=== PATIENT | female | born 1955 | race Hispanic/Latino ===

== ENCOUNTER 2018-03-24 15:26 | Outpatient (CLI) | payer BC | END 2018-03-24 15:27 | disposition home or self-care (01) | LOC: BICMRI 15:26 | PROVIDERS: ATTEND Specialist | DX: M54.14 Radiculopathy, thoracic region (principal) | CPT/HCPCS: 72070; 72146 ==

== ENCOUNTER 2018-04-08 09:42 | Outpatient (CLI) | payer BC | END 2018-04-08 09:43 | disposition home or self-care (01) | LOC: BICMAMMO 09:42 | PROVIDERS: ATTEND Physician Assistant | DX: Z12.31 Encounter for screening mammogram for malignant neoplasm of breast (principal); Z80.3 Family history of malignant neoplasm of breast | CPT/HCPCS: 77063; 77067 ==

== ENCOUNTER 2018-06-04 17:44 | Inpatient (IN) | payer BC ==
[~2018-06-04 17:44] MED LIST: Glycopyrrolate 0.2 MG/ML 5 ML SYRINGE ONE; Lidocaine 1% PF 5 ML VIAL ONE; PROPOFOL 200 MG/20 ML VIAL ONE; Succinylcholine Chloride 20 MG/ML 10 ml SYRINGE FS ONE
[2018-06-04] MEDS ORDERED: Gentamicin Sulfate 300 MG in Sodium Chloride 0.9% 100 ML IVPB ONE (18:00)
[2018-06-04] MEDS ORDERED: Fentanyl 100 MCG/2 ML VIAL ONE ×4 (18:06→21:17)
[2018-06-04 18:08] LABS: #Basophils 0.1 thou/uL (0.0-0.2); #Eosinphils 0.2 thou/uL (0.0-0.7); #Neutrophils 5.8 thou/uL (1.40-6.50); %Basophils 0.8 % (0.0-1.0); %Eosinophils 1.8 % (0.0-10.0); %Lymphocytes 29.6 % (21.0-51.0); %Neutrophils 57.8 % (42.0-75.0); Hemoglobin 15.8 g/dL (12.0-16.0); Mean Corpuscular HGB CONC 34.9 g/dL (32.0-36.0); Mean Corpuscular Hemoglobin 35.6 pg (27.0-31.0); Mean Platelet Volume 5.7 fL (7.4-10.4); Platelet Count 209 thou/uL (130-400); RBC Distribution Width 10.8 % (11.5-14.5); Red Blood Cell (RBC) Count 4.44 mill/uL (4.20-5.40)
[2018-06-04 18:21] LABS: Acetaminophen Less than 6.0 mcg/mL (10.0-30.0); Alcohol 143 mg/dL (Less than 10); Salicylate Less than 8.0 mg/dL (15.0-30.0)
[2018-06-04 18:23] LABS: ALT (SGPT) 38 U/L (8-55); AST (SGOT) 35 U/L (5-34); Albumin 4.1 g/dL (3.5-5.0); Alkaline Phosphatase 87 U/L (40-150); Anion Gap 18 mmol/L (10-20); BUN (Urea Nitrogen) 6 mg/dL (9.8-20.1); Bilirubin, Total 0.4 mg/dL (0.2-1.2); CK (CPK) 79 U/L (29-168); Calc. Creatinine Clearance 0 mL/min (70-130); Calcium 8.3 mg/dL (7.8-10.44); Carbon Dioxide 20 mmol/L (22-29); Chloride 92 mmol/L (98-107); Estimated GFR-MDRD 80; Globulin 2.6 g/dL (2.4-3.5); Glucose 94 mg/dL (70-105); Lipase 44 U/L (8-78); Potassium 3.8 mmol/L (3.5-5.1); Protein, Total 6.7 g/dL (6.0-8.3); Sodium 126 mmol/L (136-145)
[2018-06-04 18:27] LABS: CKMB 2.1 ng/mL (0-6.6); Troponin I 0.015 ng/mL (< 0.028)
--- NOTE | 2018-06-04 18:34 | RAD ---
LEFT WRIST: 06/04/18 Two views. HISTORY: Injury. There is a predominantly transverse but mildly comminuted displaced fracture of the distal radius. Th e distal fragment shows complete dorsal displacement of one shaft width. There is overriding fragment s. I cannot exclude this location of the ulnocarpal joint. IMPRESSION: Severely displaced fracture of the distal radius and evidence of dislocation of the ulnocarpal joint. POS: [facility]
--- NOTE | 2018-06-04 18:36 | RAD ---
LEFT WRIST POST REDUCTION: 06/04/18 INDICATIONS: Post reduction distal radial fracture and ulnar dislocation. FINDINGS/IMPRESSION: There has been some reduction although there continues to be dorsal displacement of the distal radial fracture. There continues to be evidence of ulnar dislocation. Cast material is noted. POS: [facility]
--- NOTE | 2018-06-04 18:37 | RAD ---
LEFT WRIST: 06/04/18 Two views. INDICATIONS: Post reduction of distal radial fracture. FINDINGS/IMPRESSION: Two lateral views obtained. The film taken at 5:52 shows continued dorsal displacement of the distal radial fracture. The film taken at 5:53 shows reduction. POS: [facility]
--- NOTE | 2018-06-04 18:39 | RAD ---
LEFT WRIST: 06/04/18 Two views. HISTORY: Post reduction. FINDINGS/IMPRESSION: Film at 5:49 is a lateral view and shows the distal radial fracture to show completely one shaft widt h dorsal displacement with overriding fragments. An AP view taken at 5:50 is again seen showing displ aced distal radius and ulnar dislocation. POS: [facility]
[2018-06-04 18:46] LABS: Bilirubin Negative (Negative); Blood, Urine Negative (Negative); Clarity CLEAR (Clear); Glucose, Urine (Dipstick) Negative (Negative); Leukocyte Negative (Negative); Nitrite Negative (Negative); Protein, Urine (Dipstick) 100 mg/dL (Neg-Trace); Specific Gravity, Urine 1.006 (1.002-1.036); Urobilinogen 0.2 mg/dL (0.2-1.0)
[2018-06-04 18:49] LABS: Bacteria/HPF None Seen HPF (None Seen); Hyaline Casts/LPF 0-3 HYALINE CAST LPF (0-3 Hyaline); Pathc Cast-AUWi Flag 0.14 (0-2.49); RBC/HPF 0-3 HPF (0-3); Squamous Epithelial 0-3 HPF (0-3); WBC/HPF 0-3 HPF (0-3)
--- NOTE | 2018-06-04 18:49 | RAD ---
PORTABLE CHEST: 06/04/18 HISTORY: Chest pain. The lung patrick are clear. Heart and mediastinum unremarkable. IMPRESSION: No acute abnormality. POS: [facility]
[2018-06-04 18:50] LABS: Pregnancy Test - Urine (BHCG) Negative (Negative); Pregu Control Background? CLEAR/WHITE (CLR/WHITE); Pregu Control Bar Appear? YES (CONTROL BAR); Specific Gravity 1.006 (1.002-1.036)
[2018-06-04] MEDS ORDERED: Famotidine/PF 20 mg/2ml Vial ONE (18:54)
[2018-06-04] MEDS ORDERED: Ondansetron ODT 4 MG TAB PO PRN (18:57)
[2018-06-04] MEDS ORDERED: Ondansetron HCl/PF 4 MG/2 ML Vial IVP PRN ×3 (18:57→21:05)
[2018-06-04] MEDS ORDERED: Dextrose 50% Abboject 50 ML SYRINGE SLOW IVP PRN (18:57)
[2018-06-04] MEDS ORDERED: Dextrose 5% in Water 1,000 ML IV PRN (18:57)
[2018-06-04] MEDS ORDERED: Acetaminophen 500 MG TAB PO SCH (19:00)
[2018-06-04] MEDS ORDERED: traMADol HCl 50 MG TAB PO SCH ×2 (19:00→23:59)
[2018-06-04 19:15] LABS: INR-International Normal Ratio 0.9; PTT 25.3 SEC (22.9-36.1); Prothrombin Time 12.6 SEC (12.0-14.7)
[2018-06-04] MEDS ORDERED: Phenylephrine HCL 10 MG/ML VIAL ONE (19:26)
[2018-06-04] MEDS ORDERED: Bacitracin Zinc Ointment 30 gm TUBE ONE ×2 (19:45→19:46)
[2018-06-04] MEDS ORDERED: Sodium Chloride 0.9% 10 ML ONE (19:46)
[2018-06-04] MEDS ORDERED: Albuterol Sulfate HFA (OR ONLY) ONE (20:37)
--- NOTE | 2018-06-04 20:46 | RAD ---
LEFT WRIST: 06/04/18 Two fluoroscopic views taken in OR. INDICATIONS: Imaging in OR during open reduction internal fixation procedure. FINDINGS/IMPRESSION: These views demonstrate external fixator devices being placed in the metacarpals and radius. POS: [facility]
[2018-06-04] MEDS ORDERED: Promethazine HCl 25 MG/ML VIAL IM PRN ×2 (20:52→21:05)
[2018-06-04] MEDS ORDERED: Promethazine HCl 25 MG/ML VIAL SLOW IVP PRN (20:52)
[2018-06-04] MEDS ORDERED: Naloxone HCl 0.4 mg/ml Vial IV PRN (21:05)
[2018-06-04] MEDS ORDERED: fentaNYL Citrate/PF 2,000 MCG in Sodium Chloride 0.9% 60 ML IV PRN (21:05)
[2018-06-04] MEDS ORDERED: diphenhydrAMINE 50 MG/ML VIAL IM PRN (21:05)
[2018-06-04] MEDS ORDERED: diphenhydrAMINE 50 MG/ML VIAL IVP PRN (21:05)
[2018-06-04] MEDS ORDERED: Zolpidem Tartrate 5 MG TAB PO PRN (21:05)
[2018-06-04] MEDS ORDERED: diphenhydrAMINE 25 MG CAP PO PRN (21:05)
[2018-06-04] MEDS ORDERED: Communication Order-Pharmacy FS SCH (21:15)
[2018-06-04] MEDS: Sodium Chloride 0.9% 1,000 ML IV SCH (22:30)
[2018-06-04] MEDS: CEFAZOLIN/Water 2 GM/20 ML SYRINGE SLOW IVP SCH (22:42)
[2018-06-04] MEDS: Famotidine 20 MG TAB PO SCH (22:42)
[2018-06-04] MEDS: Oxazepam 10 MG CAP PO SCH (22:43)
[2018-06-04 22:56] VITALS: BMI 43.0
[2018-06-04] MEDS: Acetaminophen 500 MG TAB PO SCH (23:08)
--- NOTE | 2018-06-04 23:11 | HP ---
TRAUMA EVALUATION: Level 2. HISTORY: Angelica White is consumed a case of beer a day, 62-year-old female and has fallen, fractur e in her left wrist. Dr. Watkins is planning on repairing this today with an external fixator. Maria Del Carmen kovacs's medications at home include multiple vitamins, losartan, MiraLax and hydrocodone. Dr. Gaye vera saw her in January 2017 for left ankle fracture dislocation. She has a history of GERD, hypertens ion, chronic bronchitis, sinus surgery and alcoholism. She smokes a pack a day. Jade LAWRENCE ev aluated the patient and agree with her assessment. ORIF of the left wrist under the care Dr. Gaye vera.
--- NOTE | 2018-06-04 23:40 | HP ---
DATE OF ADMISSION: 06/04/2018 ATTENDING PHYSICIAN: Dr. Berry. TRAUMA ACTIVATION: Level 2. HISTORY OF PRESENT ILLNESS: Angelica White is a 62-year-old female, who presented to [facility] s tatus post fall while intoxicated. The patient is being seen and evaluated after receiving ketamine and fentanyl for conscious sedation for reduction of an open left wrist injury. History primarily ob tained from discussion with ER physician and records review. Reportedly, the patient had a ground le belem fall after drinking approximately a case of beer earlier today. She fell on her outstretched lef t hand. She had an obvious open left wrist injury. Orthopedic Surgery was notified and Trauma Servi pat was asked to admit. Upon my evaluation, the patient has a chief complaint of left wrist pain liang t has been improved with pain medications and reduction and splinting. She is neurovascularly intact distal to the site of her injury. Orthopedic surgery has been contacted and will evaluate the patie nt. The patient is acutely intoxicated. She was activated secondary to an initial systolic blood pressur e in the 80s. This resolved with an IV fluid bolus and her systolic pressure has remained above 100 since that time. ALLERGIES: The patient's records indicate allergy to NONSTEROIDAL ANTI-INFLAMMATORIES. CHRONIC MEDICAL ILLNESSES: GERD, obesity, alcohol abuse, hypertension. PAST SURGICAL HISTORY: Sinus surgery and open reduction internal fixation of left ankle fracture. HOME MEDICATIONS: Unobtainable. FAMILY HISTORY: Unobtainable. SOCIAL HISTORY: The patient is a daily drinker. As of 01/2017, she was also a current smoker. REVIEW OF SYSTEMS: Unobtainable. PHYSICAL EXAMINATION: VITAL SIGNS: Blood pressure 104/79, pulse 83, respiratory rate 18, O2 sat 100% on room air, temperat ure 97.8. GENERAL: A female in mild distress secondary to pain. HEAD: Normocephalic, atraumatic. EYES: Pupils were PERRL with some nystagmus. NECK: Supple. Trachea is midline. CHEST: Atraumatic. Normal work of breathing. Symmetric rise. LUNGS: Clear to auscultation bilaterally. CARDIOVASCULAR: Regular rate and rhythm. No obvious murmurs, rubs, or gallops. GASTROINTESTINAL: Soft, nontender, nondistended. BACK: Reported as being within normal limits. EXTREMITIES: Left upper extremity is splinted. She is neurovascularly intact distal to the site of her injury. Bilateral lower extremities within normal limits. NEUROLOGIC: No focal deficit is present. LABORATORY FINDINGS: WBC 10, hemoglobin 15.8, hematocrit 45.4, platelet count 209. INR is 0.9. Sod ium 126, potassium 3.8, chloride 92, carbon dioxide 20, BUN 6, creatinine 0.74, glucose 94, AST 35, A LT 38. Troponin is 0.015. Urinalysis with proteinuria, but otherwise unremarkable. Urine test is negative. Blood alcohol is 143. ASSESSMENT: 1. Status post ground level fall. 2. Open left wrist fracture dislocation. 3. Acute traumatic pain. 4. Acute alcohol intoxication. 5. History of alcohol abuse. 6. Hyponatremia, likely secondary to above. PLAN: Orthopedic Surgery has seen and evaluated the patient. They plan for operative intervention t onight. The patient will be admitted to the surgical floor under Trauma Services. Perioperative jayesh n management with p.o. and IV analgesia. Postoperative occupational therapy consult. DVT and gastri tis prophylaxis as appropriate. The patient was updated on plan of care. She has been seen and eval uated by Dr. Berry. All questions were answered at the time of this dictation.
[2018-06-05] MEDS: Sodium Chloride 0.9% 1,000 ML IV SCH ×2 (01:12→13:22)
[2018-06-05 05:53] LABS: #Monocytes 1.3 thou/uL (0.11-0.59); #Neutrophils 11.2 thou/uL (1.40-6.50); %Basophils 0.1 % (0.0-1.0); %Eosinophils 0.1 % (0.0-10.0); %Lymphocytes 7.1 % (21.0-51.0); %Monocytes 9.4 % (0.0-10.0); %Neutrophils 83.4 % (42.0-75.0); Hemoglobin 15.7 g/dL (12.0-16.0); Mean Corpuscular HGB CONC 34.6 g/dL (32.0-36.0); Mean Corpuscular Hemoglobin 35.4 pg (27.0-31.0); Mean Platelet Volume 6.1 fL (7.4-10.4); Platelet Count 215 thou/uL (130-400); RBC Distribution Width 10.8 % (11.5-14.5); Red Blood Cell (RBC) Count 4.45 mill/uL (4.20-5.40); White Blood Cell (WBC) Count 13.4 thou/uL (4.8-10.8)
[2018-06-05 06:15] LABS: Anion Gap 18 mmol/L (10-20); BUN (Urea Nitrogen) 12 mg/dL (9.8-20.1); Calc. Creatinine Clearance 100 mL/min (70-130); Calcium 8.7 mg/dL (7.8-10.44); Carbon Dioxide 18 mmol/L (22-29); Chloride 94 mmol/L (98-107); Estimated GFR-MDRD 54; Glucose 118 mg/dL (70-105); Magnesium 2.3 mg/dL (1.6-2.6); Phosphorus 5.4 mg/dL (2.3-4.7); Potassium 4.6 mmol/L (3.5-5.1); Sodium 125 mmol/L (136-145)
[2018-06-05] MEDS: Acetaminophen 500 MG TAB PO SCH ×3 (06:19→18:35)
[2018-06-05] MEDS: Oxazepam 10 MG CAP PO SCH ×3 (06:19→22:55)
[2018-06-05] MEDS: CEFAZOLIN/Water 2 GM/20 ML SYRINGE SLOW IVP SCH ×2 (06:21→15:31)
[2018-06-05] MEDS: traMADol HCl 50 MG TAB PO SCH ×3 (08:40→21:12)
[2018-06-05] MEDS: Multivitamin W/ Minerals 1 TAB PO SCH (08:42)
[2018-06-05] MEDS: Folic Acid 1 MG TAB PO SCH (08:42)
[2018-06-05] MEDS: Famotidine 20 MG TAB PO SCH ×2 (08:42→21:13)
[2018-06-05] MEDS ORDERED: Gabapentin 300 MG CAP PO SCH (10:00)
--- NOTE | 2018-06-05 12:59 | OP ---
DATE OF SURGERY: 06/04/2018 PREOPERATIVE DIAGNOSIS: Grade I open left distal radius fracture, comminuted. POSTOPERATIVE DIAGNOSIS: Grade I open left distal radius fracture, comminuted. SURGICAL PROCEDURE: 1. Closed reduction and application of external fixator, left distal radius. 2. Irrigation and debridement of left open wrist wound. ANESTHESIA: General. TOURNIQUET TIME: Approximately 1 hour. SURGEON: Jesus Watkins M.D. ENVIRONMENTAL SERVICES SUPERVISOR: Jim Baltazar PA-C IMPLANTS: The Synthes wrist ex-fix system was used with 4 pins and a single bar external fix. COMPLICATIONS: None. DRAINS: None. SPECIMEN: None. INDICATIONS: The patient is a 62-year-old lady who while intoxicated fell apparently landing on her left upper extremity, sustaining an open fracture dislocation of the left wrist. An attempt was made at closed reduction in the emergency room; however, this was found to be very unstable and given the open nature of this injury we are now proceeding to the operating room for irrigation, debridement, and anticipated application of external fixator due to the severity of comminution. Two physician co nsent was pursued given the fact we could not obtain consent from the patient due to her intoxicated state and attempts were made at contacting her family, which is the only known contact on the patient 's medical record and this proved to be unsuccessful. PROCEDURE: The patient was brought to the operating room and a timeout performed followed by inducti on of general anesthesia. The patient was positioned supine on the OR table with the left arm on a h and board. Next, 2 small stab wounds were made over the dorsal radial aspect of the index metacarpal . This was followed by insertion of threaded pins for the external fixator. A third incision was th en made over the dorsal radial aspect of the radial shaft. After the skin was sharply incised, disse ction was carried down bluntly, so as to protect the superficial radial nerve. Once the cortex was c learly visualized 2 pins were then placed in the radius as well. Depth of pins and alignment was rod cked on AP and lateral C-arm imaging. The radial wound was then irrigated and closed with nylon sutu res. Next, the external fixator was built and applied to these pins. The arm was brought into longi tudinal traction and slight ulnar deviation and pronation. The external fixator was then tightened a nd then AP and lateral C-arm images were obtained that showed orthodoxy of radial inclination and e ssentially orthodoxy of volar tilt. There was found to be a step off at the scapholunate fossa sec ondary to the severity of the comminution. A single attempt was made at pinning the distal radial ul marie joint due to instability; however, this proved to be unsuccessful and actually just further displ aced the radius and as such pinning was discontinued. Next, attention was placed to a small open wou nd, a liter of normal saline using bulb syringe was irrigated through this wound which overlied the u intelligence analyst. At the completion of irrigation, the wound was closed with nylon. A Xeroform gauze dressing wa s applied to the pin sites as well as this open wound and then a bulky long arm posterior splint was applied to the arm. At the completion of this, tourniquet was let down. The patient was transferred to recovery room in stable condition. There were no complications and she tolerated the procedure w
--- NOTE | 2018-06-05 14:02 | PRG ---
DATE OF SERVICE: 06/05/2018 SUBJECTIVE: Ms. White is a 62-year-old woman who is postop day #1 status post closed reduction and application of external fixator to a left open wrist fracture. This morning, she reports adequate pa in control using EGG SETTER. She tolerated general diet. OBJECTIVE: VITAL SIGNS: Includes blood pressure 154/84, pulse 100, respiratory rate 24, temperature is 98.5 deg laquita Fahrenheit, oxygen saturation is 92% on room air. HEENT: Reveals normocephalic and atraumatic. Pupils equal, round, reactive to light and accommodati on. Extraocular muscles are intact bilaterally. HEART: Reveals regular rate and rhythm, no murmurs or gallops auscultated. CHEST: Clear to auscultation bilaterally. Her breathing is regular and unlabored. ABDOMEN: Soft, nontender, nondistended. NEUROLOGIC: Reveals no focal deficits present. EXTREMITIES: Left wrist is immobilized in external fixator on a long splint. She has good capillary refill, which is less than 2 seconds in bilateral upper and lower extremities. LABORATORY DATA: Today includes a CBC with 13,400 white blood cells, hemoglobin 15.7, hematocrit is 45.5, platelet count is 215,000. Metabolic profile: Sodium 125, potassium 4.6, chloride is 94, BUN is 12, creatinine is 1.04, glucose is 118, magnesium is 2.3, phosphorus is 5.4. IMPRESSION: 1. Postop day #1, status post closed reduction and external fixator to a left open wrist fracture. 2. Acute hyponatremia. 3. Morbid obesity. PLAN: 1. We will restrict free water intake for the next 24 hours and monitor the patient's sodium. 2. Analgesics will be converted to p.o. 3. We will increase activity. 4. We will initiate aggressive pulmonary toilet. Above findings and plan have been discussed with the patient who indicates understanding of the infor mation given. I have answered her questions.
[2018-06-05] MEDS ORDERED: Sodium Chloride 0.9% 500 ML IVPB SCH (18:15)
[2018-06-05] MEDS: Pregabalin 75 MG CAP PO SCH (21:13)
[2018-06-06] MEDS: Acetaminophen 500 MG TAB PO SCH ×2 (00:33→05:59)
[2018-06-06] MEDS: traMADol HCl 50 MG TAB PO SCH ×2 (03:02→08:21)
[2018-06-06] MEDS: Oxazepam 10 MG CAP PO SCH (05:58)
[2018-06-06 07:38] LABS: Chloride 95 mmol/L (98-107); Potassium 4.1 mmol/L (3.5-5.1); Sodium 127 mmol/L (136-145)
[2018-06-06 07:39] LABS: Calcium 8.5 mg/dL (7.8-10.44); Glucose 113 mg/dL (70-105)
[2018-06-06 07:41] LABS: Anion Gap 13 mmol/L (10-20); Carbon Dioxide 23 mmol/L (22-29)
[2018-06-06 07:43] LABS: Calc. Creatinine Clearance 149 mL/min (70-130); Estimated GFR-MDRD 85
[2018-06-06 07:44] LABS: BUN (Urea Nitrogen) 11 mg/dL (9.8-20.1)
[2018-06-06] MEDS: Famotidine 20 MG TAB PO SCH (08:22)
[2018-06-06] MEDS: Multivitamin W/ Minerals 1 TAB PO SCH (08:23)
[2018-06-06] MEDS: Pregabalin 75 MG CAP PO SCH (08:23)
[2018-06-06] MEDS: Folic Acid 1 MG TAB PO SCH (08:23)
--- NOTE | 2018-06-06 11:46 | DIS ---
DATE OF ADMISSION: 06/04/2018 DATE OF DISCHARGE: 06/06/2018 ADMITTING PHYSICIAN: Dr. Berry. DISCHARGING PHYSICIAN: Dr. Brown. SIDE LASTER TACK: Dr. Watkins with Orthopedic Surgery. ADMITTING DIAGNOSES: 1. Status post ground level fall. 2. Open left wrist fracture. DISCHARGE DIAGNOSES: 1. Status post ground level fall. 2. Open left wrist fracture. OPERATIONS PERFORMED: Closed reduction and external fixator to open left wrist fracture by Dr. Glenny patel on 06/04/2018. HISTORY AND HOSPITAL COURSE: This is a 62-year-old woman who fell down from a ground level position, sustaining an open left wrist fracture. The patient was taken to the operating room by Dr. Watkins for irrigation, debridement, and external fixator application to the left wrist fracture. Postopera tively, patient was admitted to surgical floor where she remained at time of discharge. Hospitalizat ion has been essentially uneventful. Postop day #2, the patient is evaluated. She has remained hemo dynamically stable and afebrile through this admission. Pain is adequately controlled on oral analge sics. She is ambulating with minimum difficulty. PHYSICAL EXAMINATION: VITAL SIGNS: Today includes blood pressure 144/84, pulse 84, respiratory rate is 20, temperature 98. 5 degrees Fahrenheit, oxygen saturation is 93% on room air. EXTREMITIES: The left upper extremity is immobilized in a splint. She has good capillary refill in all extremities. LABORATORY DATA: She had an admitting laboratory studies consistent with acute hyponatremia with sod ium on admission noted at 126. Patient was placed on a fluid restriction and sodium today is 127. Review of hospital medications includes losartan and hydrochlorothiazide combination. I suspect that the hydrochlorothiazide is responsible for the hyponatremia which spans several other hospital visit s in the past, so this is actually chronic hyponatremia. The patient has remained asymptomatic from that standpoint. DISCHARGE INSTRUCTIONS: She has been discharged today with the following instructions: 1. She follows up with Dr. Watkins in surgical clinic in 1 week. I also given the patient a prescr iption for losartan 100 mg to be taken 1 p.o. daily. 2. She is to follow up with her primary care physician in 1 week. I have been on informed conversat ion with her primary care physician today, informing her of my plan to withhold hydrochlorothiazide u ntil the patient has been seen in the primary care clinic with repeat BMP. 3. She is to resume all other medications as prescribed by her primary care physician except for los isaiah/hydrochlorothiazide combination. The above instructions have been given to the patient. She requires no further follow up from this T rauma Surgery standpoint except for as needed. The patient indicates understanding of the informatio n given. I have answered all her questions.
[2018-06-06 11:49] VITALS: BP 176/94; TEMP 98.6
--- NOTE | 2018-06-07 11:49 | EKG ---
Test Reason : Blood Pressure : / mmHG Vent. Rate : 083 BPM Atrial Rate : 083 BPM P-R Int : 202 ms QRS Dur : 100 ms QT Int : 434 ms P-R-T Axes : 060 025 044 degrees QTc Int : 509 ms Normal sinus rhythm Nonspecific T wave abnormality Prolonged QT Abnormal ECG Confirmed by SIRISHA MUÑIZ, ROMEL ([id number]), acquisition editor ANNIE HERNANDEZ ([id number]) on 06/07/2018 11:49:22 AM Referred By: Confirmed By:ROMEL GRIMM MD
== END 2018-06-06 12:45 | disposition home or self-care (01) | DRG 511 ==
LOC: ERS 17:44 → SURG A 22:00
PROVIDERS: ADMIT Specialist; ATTEND Orthopaedic Surgery
PROC: 0PSJ35Z Reposition Left Radius with External Fixation Device, Percutaneous Approach (ICD-10-PCS; principal; 2018-06-04)
PROC: 0X9H0ZZ Drainage of Left Wrist Region, Open Approach (ICD-10-PCS; 2018-06-04)
DX: S52.502B Unspecified fracture of the lower end of left radius, initial encounter for open fracture type I or II (principal); E87.1 Hypo-osmolality and hyponatremia; Z68.41 Body mass index [BMI] 40.0-44.9, adult; W18.30XA Fall on same level, unspecified, initial encounter; Y93.89 Activity, other specified; Y92.89 Other specified places as the place of occurrence of the external cause; F10.129 Alcohol abuse with intoxication, unspecified; E66.01 Morbid (severe) obesity due to excess calories; F17.210 Nicotine dependence, cigarettes, uncomplicated; Y90.6 Blood alcohol level of 120-199 mg/100 ml
CPT/HCPCS: 36415; 71045; 76001; 80048; 80053; 80307; 81003; 81015; 81025; 82553; 83690; 83735; 83880; 84100; 84484; 85025; 85610; 85730; 86850; 86900; 86901; 90471; 90732; 93005; 94760; 96374; A4216; C1713; G0009; G0390; G8987-GO-CK; G8988-GO-CI; J1580; J2001; J2370; J2704; J3010; J3490; J7050; Q0162; S0028

== ENCOUNTER 2018-07-28 13:58 | Day surgery (SDC) | payer BC ==
[2018-07-25 15:38] VITALS: BMI 41.6
[2018-07-28] MEDS ORDERED: CEFAZOLIN/Water 2 GM/20 ML SYRINGE ONE (14:44)
--- NOTE | 2018-07-28 16:10 | EKG ---
Test Reason : PREOP Blood Pressure : / mmHG Vent. Rate : 061 BPM Atrial Rate : 061 BPM P-R Int : 170 ms QRS Dur : 086 ms QT Int : 468 ms P-R-T Axes : 043 023 043 degrees QTc Int : 471 ms Normal sinus rhythm Normal ECG When compared with ECG of 04-JUN-2018 18:48, Nonspecific T wave abnormality no longer evident in Lateral leads Confirmed by MIKAELA GOMEZ ([id number]) on 07/28/2018 4:10:41 PM Referred By: MARBELLA Confirmed By:MIKAELA GOMEZ
[2018-07-28] MEDS ORDERED: Famotidine/PF 20 mg/2ml Vial ONE (16:17)
[2018-07-28] MEDS ORDERED: Midazolam HCl 2 mg/2 ml Vial ONE ×2 (16:38→17:01)
[2018-07-28] MEDS ORDERED: Fentanyl 100 MCG/2 ML VIAL ONE (17:01)
[2018-07-28] MEDS ORDERED: Ketamine 50 MG/ML VIAL ONE (17:01)
--- NOTE | 2018-07-28 22:29 | OP ---
DATE OF PROCEDURE: 07/28/2018 OPERATION: Left wrist external fixator removal. PREOPERATIVE DIAGNOSIS: Left distal radius fracture. POSTOPERATIVE DIAGNOSIS: Left distal radius fracture. COMPLICATIONS: None. ESTIMATED BLOOD LOSS: None. SURGEON: Jim Garcia M.D. IMPLANTS: None. INDICATIONS FOR PROCEDURE: Ms. White is a 62-year-old female who approximately 8 weeks ago, fractur ed her distal radius. She had a severely comminuted and displaced fracture. We elected to place an external fixator on her wrist to restore anatomic alignment. She has kept this on and is now healed. She has been indicated for external fixator removal, so that she can regain wrist motion. Risks starks ve been reviewed in detail. She has elected to proceed with the operation. DESCRIPTION OF OPERATION: Ms. White was identified in the preoperative holding area. Her correct e xtremity was marked. She was carried to the operating room. She was positioned supine. General ane sthesia was induced. A multidisciplinary timeout was performed. The left upper extremity was preppe d and draped in sterile fashion. We began the procedure with evaluation of the wrist under intraoperative x-ray. The fracture again a ppeared healed. We removed the external fixator using the appropriate pin pile driver and wrenches. All pins were removed as well as the device. At this point, again we checked x-ray and we gently manipul ated the wrist for motion. We then placed a dressing over the wounds and a brace was placed on the w rist. The patient was taken to the recovery room in good condition without complication.
== END 2018-07-28 18:48 | disposition home or self-care (01) ==
LOC: SDC 13:58
PROVIDERS: ATTEND Orthopaedic Surgery
PROC: 0RP Upper Joints, Removal (ICD-10-PCS; principal; 2018-07-28)
DX: S52.532D Colles' fracture of left radius, subsequent encounter for closed fracture with routine healing (principal); F17.200 Nicotine dependence, unspecified, uncomplicated; Z79.899 Other long term (current) drug therapy
CPT/HCPCS: 76000; 93005; 93010; J2250; J3010; S0028

== ENCOUNTER 2018-08-20 10:56 | Outpatient (CLI) | payer BC | END 2018-08-20 10:57 | disposition home or self-care (01) | LOC: BICRAD 10:56 | PROVIDERS: ATTEND Physician Assistant | DX: S93.402A Sprain of unspecified ligament of left ankle, initial encounter (principal); M79.89 Other specified soft tissue disorders ==

== ENCOUNTER 2019-01-28 10:37 | Day surgery (SDC) | payer BC ==
[2019-01-27 12:33] VITALS: BMI 37.9
[2019-01-28] MEDS ORDERED: Ropivacaine 0.2% HCl/PF (40 MG/20 ML VIAL) ONE (11:14)
[2019-01-28] MEDS ORDERED: Ropivacaine 0.5% HCl/PF (150 MG/30 ML VIAL) ONE (11:14)
[2019-01-28] MEDS ORDERED: Dexamethasone 20 MG/5 ML VIAL ONE (11:23)
[2019-01-28] MEDS ORDERED: Lidocaine 1% PF 5 ML VIAL ONE (11:23)
[2019-01-28] MEDS ORDERED: PROPOFOL 200 MG/20 ML VIAL ONE (11:23)
[2019-01-28] MEDS ORDERED: Ketorolac Tromethamine 30 MG/ML VIAL ONE (11:23)
[2019-01-28] MEDS ORDERED: Ondansetron PF 4 MG/2 ML Vial ONE (11:23)
[2019-01-28] MEDS ORDERED: ePHEDrine 50 MG/ML VIAL ONE (11:23)
[2019-01-28] MEDS ORDERED: Fentanyl 100 MCG/2 ML VIAL ONE ×3 (11:57→14:25)
[2019-01-28] MEDS ORDERED: Midazolam HCl 2 mg/2 ml Vial ONE (12:11)
[2019-01-28] MEDS ORDERED: traMADol HCl 50 MG TAB PO PRN ×2 (12:55)
[2019-01-28] MEDS ORDERED: Ropivacaine 0.2% 550 ML 550 ML NERVE BLCK SCH (12:55)
[2019-01-28] MEDS ORDERED: Zolpidem Tartrate 5 MG TAB PO PRN (12:55)
[2019-01-28] MEDS ORDERED: Ondansetron PF 4 MG/2 ML Vial IVP PRN (12:55)
[2019-01-28] MEDS ORDERED: Promethazine HCl 25 MG/ML VIAL IM PRN (12:55)
[2019-01-28] MEDS ORDERED: HYDROcodone/Acetaminophen 5/325 mg Tablet PO PRN ×2 (12:55)
--- NOTE | 2019-01-28 14:49 | RAD ---
LEFT FOREARM TWO VIEWS: History: Osteotomy of distal ulna. Comparison: 06-04-18 FINDINGS: These c-arm views show osteotomy of the distal ulnar shaft and now fixation with a plate and screws. There is increase in impaction to the intraarticular distal radial fracture as compared to the prior exam. IMPRESSION: Osteotomy of the distal ulna fixed with plate and screws. POS: [facility]
--- NOTE | 2019-01-29 09:02 | OP ---
DATE OF PROCEDURE: 01/28/2019 OPERATION: Left ulnar shortening osteotomy. PREOPERATIVE DIAGNOSIS: Left ulnar positive variation after distal radius fracture. POSTOPERATIVE DIAGNOSES: Left ulnar positive variation after distal radius fracture. COMPLICATIONS: None. ESTIMATED BLOOD LOSS: Minimal. SKIVER SOCK LININGS: Saul Garcia. IMPLANT: Synthes 3.5 mm plate x6 holes. INDICATIONS: Ms. White is a 63-year-old female, who has fallen. She fractured her distal radius. She was treated in an external fixator initially. Unfortunately, after the external fixator was removed, she had shortening of her radius. This has left her with a significantly ulnar positive wrist. She has developed increasing deformity and pain. She was indicated for ulnar shortening osteotomy to restore balance of her wrist. This was chosen rather than radial opening osteotomy because she is a smoker and may have a hard chance of healing and opening osteotomy. Risks have been reviewed. She has elected to proceed with the operation. DESCRIPTION OF PROCEDURE: Ms. White was identified in the preop holding area. Her correct extremity was marked. She was carried to the operating room. She was positioned supine. General anesthesia was induced. A multidisciplinary time-out was performed. The left upper extremity was prepped and draped in sterile fashion. We began the procedure with ulnar approach. We made a 6 cm incision. We dissected down through the subcutaneous tissues to the bony level. We cleared the soft tissues from the cortex of the ulna. At this point, we used intraoperative x-ray to assess site for our osteotomy. We then resected 12 mm of bone based on preoperative templating. We then reduced our fracture back into its compressed position. We applied a 6-hole 3.5 mm plate. We placed multiple screws in a compression technique. We then took final images. All screw holes were filled. We then thoroughly irrigated with copious lavage. The soft tissues were closed. The patient's range of motion was checked. We then placed an ulnar gutter splint. She was taken to the recovery room in good condition. Job ID: [id number]
== END 2019-01-28 16:15 | disposition home or self-care (01) ==
LOC: SDC 10:37
PROVIDERS: ATTEND Orthopaedic Surgery
PROC: 0PSL04Z Reposition Left Ulna with Internal Fixation Device, Open Approach (ICD-10-PCS; principal; 2019-01-28)
DX: S52.572A Other intraarticular fracture of lower end of left radius, initial encounter for closed fracture (principal); F32.9 Major depressive disorder, single episode, unspecified; F17.200 Nicotine dependence, unspecified, uncomplicated; Z90.89 Acquired absence of other organs; Z88.6 Allergy status to analgesic agent; Z79.899 Other long term (current) drug therapy; W19.XXXA Unspecified fall, initial encounter; Z98.890 Other specified postprocedural states
CPT/HCPCS: 76000; A4306; C1713; J1100; J1885; J2001; J2250; J2405; J2704; J2795; J3010; J3490

== ENCOUNTER 2019-04-09 11:20 | Outpatient (CLI) | payer BC ==
--- NOTE | 2019-04-09 12:01 | MMO ---
Bilateral MAMMO Bilat Screen [facility]. CLINICAL HISTORY: Patient is 63 years old and is seen for screening. The patient has the following family history of breast cancer: cousin female. The patient has no personal history of cancer. VIEWS: The views performed were: bilateral craniocaudal with tomosynthesis and bilateral mediolateral oblique with tomosynthesis. FILMS COMPARED: The present examination has been compared to prior imaging studies performed at on 03/16/2016, 03/18/2017 and 04/08/2018. MAMMOGRAM FINDINGS: The breasts are heterogeneously dense, which could obscure a lesion on mammography. Finding 1: There are stable benign appearing densities seen in both breasts. Finding 2: There are stable benign appearing calcifications seen in both breasts. There are no suspicious masses, suspicious calcifications, or new areas of architectural distortion. IMPRESSION: THERE IS NO MAMMOGRAPHIC EVIDENCE OF MALIGNANCY. A ROUTINE FOLLOW-UP MAMMOGRAM IN 1 YEAR IS RECOMMENDED. THE RESULTS OF THIS EXAM WERE SENT TO THE PATIENT. ACR BI-RADS Category 2 - Benign finding MAMMOGRAPHY NOTE: 1. A negative mammogram report should not delay a biopsy if a dominant of clinically suspicious mass is present. 2. Approximately 10% to 15% of breast cancers are not detected by mammography. 3. Adenosis and dense breasts may obscure an underlying neoplasm.
== END 2019-04-09 11:21 | disposition home or self-care (01) ==
LOC: BICMAMMO 11:20
PROVIDERS: ATTEND Physician Assistant
DX: Z12.31 Encounter for screening mammogram for malignant neoplasm of breast (principal); Z80.3 Family history of malignant neoplasm of breast
CPT/HCPCS: 77063; 77067

== ENCOUNTER 2019-04-24 13:50 | Outpatient (CLI) | payer BC ==
--- NOTE | 2019-04-24 14:39 | BD ---
EXAM: Bone densitometry using DEXA HISTORY: 63 yo female. Screening for postmenopausal osteoporosis FINDINGS: L1--bone mineral density 1.021 g/sq cm; T score 0.3 ; Z score 1.6 L2--bone mineral density 0.877 g/sq cm; T score -1.4 ; Z score 0.1 L3--bone mineral density 0.789 g/sq cm; T score -2.7 ; Z score -1.1 L4--bone mineral density 1.006 g/sq cm; T score -0.5 ; Z score 1.1 Total L1-L4--bone mineral density 0.923 g/sq cm; T score -1.1 ; Z score 0.4 Left femoral neck--bone mineral density0.568; T score -2.5 ; Z score -1.2 Total proximal left femur--bone mineral density 0.971; T score 0.2 ; Z score 1.3 IMPRESSION: Osteoporosis.
== END 2019-04-24 13:51 | disposition home or self-care (01) ==
LOC: BICMAMMO 13:50
PROVIDERS: ATTEND Physician Assistant
DX: Z13.820 Encounter for screening for osteoporosis (principal); Z87.81 Personal history of (healed) traumatic fracture; M81.0 Age-related osteoporosis without current pathological fracture
CPT/HCPCS: 77080

== ENCOUNTER 2019-09-02 15:37 | Outpatient (CLI) | payer BC ==
--- NOTE | 2019-09-02 16:29 | MRI ---
MRI LUMBAR SPINE WITHOUT CONTRAST: 09/02/19 INDICATION: Lumbar disc degeneration. Back pain. FINDINGS: Lumbar vertebrae maintain height and alignment. Disc spaces are preserved. Lumbar vertebral body sign al is normally preserved. At L1-2, no significant disc bulge. No central canal or foraminal stenosis. At L2-3, there is a mild diffuse disc bulge flattening the thecal sac. Facet arthrosis and hypertroph y. No significant central canal or foraminal stenosis. At L3-4, mild diffuse disc bulge flattens the thecal sac. Facet arthrosis and mild hypertrophy. No si gnificant central canal or foraminal stenosis. At L4-5, mild diffuse disc bulge flattens the thecal sac. Facet and ligamentous hypertrophy is modera te. Posterior epidural fat is present compressing the thecal sac. These changes result in mild centra l canal stenosis. At L5-S1, there is a mild diffuse disc bulge centrally. This bulge is slightly more pronounced to the left. It does appear to contact a traversing left S1 nerve root. There is a congenitally smaller the joaquin sac. Mild facet hypertrophy. No central canal or significant foraminal stenosis apparent. IMPRESSION: Mild disc bulges are seen at several levels as described. Mild central canal stenosis at L4-5. Mild a symmetric bulge to the left at L5-S1 as described. POS: [facility]
== END 2019-09-02 15:38 | disposition home or self-care (01) ==
LOC: TBSIIMAG 15:37
PROVIDERS: ATTEND Nurse Practitioner Family
DX: M51.36 Other intervertebral disc degeneration, lumbar region (principal); M51.87 Other intervertebral disc disorders, lumbosacral region; M51.86 Other intervertebral disc disorders, lumbar region; M48.061 Spinal stenosis, lumbar region without neurogenic claudication
CPT/HCPCS: 72148

== ENCOUNTER 2019-11-27 22:42 | Emergency (ER) | payer BC ==
[2019-11-27] MEDS ORDERED: Ondansetron PF 4 MG/2 ML Vial ONE (23:13)
[2019-11-27] MEDS ORDERED: Morphine 4 MG/ML VIAL ONE (23:13)
[2019-11-28] MEDS ORDERED: Morphine 4 MG/ML VIAL ONE (01:07)
--- NOTE | 2019-11-28 07:45 | RAD ---
EXAM: 2 views of the left shoulder HISTORY: Shoulder pain after fall COMPARISON: None FINDINGS: There is a comminuted fracture of the left humeral neck. No dislocation is seen. No degener ative changes are seen. The visualized thorax is unremarkable. IMPRESSION: Comminuted left humeral neck fracture.
== END 2019-11-28 01:32 | disposition home or self-care (01) ==
LOC: ERS 22:42
DX: S42.212A Unspecified displaced fracture of surgical neck of left humerus, initial encounter for closed fracture (principal); K21.9 Gastro-esophageal reflux disease without esophagitis; I10 Essential (primary) hypertension; J42 Unspecified chronic bronchitis; F17.210 Nicotine dependence, cigarettes, uncomplicated; W01.0XXA Fall on same level from slipping, tripping and stumbling without subsequent striking against object, initial encounter
CPT/HCPCS: 96374; 96375; 96376; J2270; J2405

== ENCOUNTER 2019-12-04 07:29 | Observation (INO) | payer BC ==
[2019-12-04 08:44] LABS: Anion Gap 14 mmol/L (10-20); BUN (Urea Nitrogen) 10 mg/dL (9.8-20.1); Calc. Creatinine Clearance 170 mL/min (70-130); Calcium 9.1 mg/dL (7.8-10.44); Carbon Dioxide 26 mmol/L (23-31); Chloride 96 mmol/L (98-107); Estimated GFR-MDRD Greater than 90; Glucose 99 mg/dL (80-115); Potassium 3.4 mmol/L (3.5-5.1); Sodium 133 mmol/L (136-145)
[2019-12-04] MEDS ORDERED: Fentanyl 100 MCG/2 ML VIAL ONE ×2 (10:28→10:29)
[2019-12-04] MEDS ORDERED: Midazolam HCl 2 mg/2 ml Vial ONE (10:29)
[2019-12-04] MEDS ORDERED: Ropivacaine 0.5% HCl/PF (150 MG/30 ML VIAL) ONE (10:37)
[2019-12-04] MEDS ORDERED: Dexamethasone 20 MG/5 ML VIAL ONE (10:37)
[2019-12-04] MEDS ORDERED: PHENYLEPHRINE-NS 100 MCG/ML 10 ML SYRINGE ONE (10:37)
[2019-12-04] MEDS ORDERED: Rocuronium Bromide 10 MG/ML (10ML VIAL) ONE (10:37)
[2019-12-04] MEDS ORDERED: Ondansetron PF 4 MG/2 ML Vial ONE (10:37)
[2019-12-04] MEDS ORDERED: Ropivacaine 0.2% HCl/PF (40 MG/20 ML VIAL) ONE (10:37)
[2019-12-04] MEDS ORDERED: PROPOFOL 200 MG/20 ML VIAL ONE (10:37)
[2019-12-04] MEDS ORDERED: ePHEDrine/0.9% NaCl/PF SYRINGE 50 mg/10 ml ONE (10:37)
[2019-12-04] MEDS ORDERED: Albuterol Sulfate 2.5 mg/3 ml Neb ONE (10:54)
[2019-12-04] MEDS ORDERED: Albuterol Sulfate 1.25 MG/3 ML NEB ONE (10:54)
[2019-12-04] MEDS ORDERED: Ondansetron PF 4 MG/2 ML Vial IVP PRN (11:06)
[2019-12-04] MEDS ORDERED: Ropivacaine 0.2% 550 ML 550 ML NERVE BLCK SCH (11:06)
[2019-12-04] MEDS ORDERED: Promethazine HCl 25 MG/ML VIAL IM PRN (11:06)
[2019-12-04] MEDS ORDERED: HYDROcodone/Acetaminophen 10/325 mg Tablet PO PRN (11:06)
[2019-12-04] MEDS ORDERED: traMADol HCl 50 MG TAB PO PRN ×2 (11:06)
[2019-12-04] MEDS ORDERED: Zolpidem Tartrate 5 MG TAB PO PRN (11:06)
[2019-12-04] MEDS ORDERED: Fentanyl 100 MCG/2 ML VIAL SLOW IVP PRN (11:07)
[2019-12-04] MEDS ORDERED: Acetaminophen 325 MG TAB PO PRN (11:08)
[2019-12-04] MEDS ORDERED: Alendronate Sodium 70 mg Tablet PO SCH (11:15)
[2019-12-04] MEDS ORDERED: Communication Order-Pharmacy FS PRN (11:15)
[2019-12-04] MEDS ORDERED: SUGAMMADEX SODIUM 200 MG/2 ML VIAL ONE (12:46)
--- NOTE | 2019-12-04 14:06 | OP ---
DATE OF PROCEDURE: 12/04/2019 PROCEDURE PERFORMED: Open reduction and internal fixation of left proximal humerus fracture. PREOPERATIVE DIAGNOSIS: Displaced left 3-part proximal humerus fracture. POSTOPERATIVE DIAGNOSIS: Displaced left 3-part proximal humerus fracture. COMPLICATIONS: None. ESTIMATED BLOOD LOSS: 150 mL. FAILURE ANALYSIS ENGINEER: Saul Garcia PA-C IMPLANTS: Synthes proximal humeral variable angle locking plate. INDICATIONS FOR PROCEDURE: Ms. White is a 64-year-old female, who fell and fractured her left proximal humerus. She has been indicated for open reduction and internal fixation of the proximal humerus to restore anatomic alignment and promote healing. Risks have been reviewed. Risks to include infection, pain, scarring, nerve or vascular injury, and others. DESCRIPTION OF PROCEDURE: Ms. White was identified in the preoperative holding area. Her correct extremity was marked. She was carried to the operating room. She was positioned supine. General anesthesia was induced. A multidisciplinary time-out was performed. The left upper extremity was prepped and draped in sterile fashion. Next, we began the procedure with deltopectoral approach to the shoulder. We dissected down through the subcutaneous tissues to the deltopectoral interval. This was developed bluntly. We retracted the deltoid laterally. We then worked more deeply and encountered the proximal humeral fracture. The fracture was significantly displaced and disrupted. At this point, we cleared the bony edges. We irrigated. We then reduced the fracture back into its anatomic position. We placed several #5 Ethibond sutures around the fracture at the tuberosity. This allowed us to reduce the greater tuberosity back into its anatomic position. We held this with K-wire fixation. Next, we placed a proximal humeral locking plate. We placed distal screws as well as proximal screws. We took x-ray images confirming reduction and plate placement. We filled all remaining screw holes. We then took final images. At this point, we thoroughly irrigated with copious lavage. We then finished our tuberosity repair with our Ethibond sutures passing these around the plate and through the plate holes. These were tied down. Finally, we closed the deltopectoral interval and finished a layered closure. A sterile dressing was applied. The patient was taken to the recovery room in good condition without complication. Job ID: [id number]
[2019-12-04 14:45] VITALS: BMI 47.1
--- NOTE | 2019-12-04 15:21 | RAD ---
LEFT HUMERUS 4 FLUOROSCOPIC SPOT IMAGES: INDICATION: ORIF of left shoulder. COMPARISON: Left shoulder radiograph dated 11/18/2019. FINDINGS: Submitted images demonstrate open reduction internal fixation of the comminuted proximal left humerus fracture. Fracture line is near anatomic. The instrumentation projects in the expected position. Small Ray-Maral is seen adjacent to the operative site. Total fluoroscopic time is 8.8 seconds. Total exposure is 0.95 mGy. IMPRESSION: Interval open reduction internal fixation of left humerus fracture. POS: OFF
--- NOTE | 2019-12-04 16:34 | EKG ---
Test Reason : PREOP Blood Pressure : / mmHG Vent. Rate : 076 BPM Atrial Rate : 076 BPM P-R Int : 168 ms QRS Dur : 090 ms QT Int : 422 ms P-R-T Axes : 052 032 044 degrees QTc Int : 474 ms Normal sinus rhythm Normal ECG When compared with ECG of 28-JUL-2018 14:41, No significant change was found Confirmed by DR. Gabrielle MANJARREZ (3) on 12/04/2019 4:34:25 PM Referred By: CORIE Confirmed By:DR. Gabrielle MANJARREZ
[2019-12-04] MEDS: CEFAZOLIN 2 GM in Premix Bag 1 BAG IVPB SCH (17:24)
[2019-12-05] MEDS: CEFAZOLIN 2 GM in Premix Bag 1 BAG IVPB SCH (01:36)
[2019-12-05] MEDS: HYDROcodone/Acetaminophen 10/325 mg Tablet PO PRN ×4 (01:43→20:34)
[2019-12-05 07:00] LABS: #Eosinphils 0.1 thou/uL (0.0-0.7); #Lymphocytes 1.6 thou/uL (1.20-3.40); #Monocytes 1.8 thou/uL (0.11-0.59); #Neutrophils 11.4 thou/uL (1.40-6.50); %Basophils 0.2 % (0.0-1.0); %Eosinophils 0.4 % (0.0-10.0); %Lymphocytes 10.9 % (21.0-51.0); %Monocytes 11.9 % (0.0-10.0); %Neutrophils 76.7 % (42.0-75.0); Hemoglobin 12.9 g/dL (12.0-16.0); Mean Corpuscular HGB CONC 34.6 g/dL (32.0-36.0); Mean Corpuscular Hemoglobin 35.1 pg (27.0-31.0); Mean Platelet Volume 6.9 fL (7.4-10.4); Platelet Count 259 thou/uL (130-400); RBC Distribution Width 10.3 % (11.5-14.5); Red Blood Cell (RBC) Count 3.69 mill/uL (4.20-5.40); White Blood Cell (WBC) Count 14.8 thou/uL (4.8-10.8)
[2019-12-05] MEDS ORDERED: Non-Formulary Item 1 EACH (Biotin [Biotin] 5,000 MCG) PO SCH (09:00)
[2019-12-05] MEDS: Cyanocobalamin (Vitamin B-12) 1,000 MCG TAB PO SCH (09:14)
[2019-12-05] MEDS: Multivitamin W/ Minerals 1 TAB PO SCH (09:14)
[2019-12-05] MEDS: Losartan 25 MG TAB PO SCH (09:15)
[2019-12-05] MEDS: Amlodipine 5 MG TAB PO SCH (09:15)
[2019-12-05] MEDS: Hydrochlorothiazide 25 MG TAB PO SCH (09:15)
[2019-12-05] MEDS: Citalopram 20 MG TAB PO SCH (09:15)
[2019-12-05] MEDS ORDERED: FLU VACC QS2019-20(6MOS UP)/PF 60 MCG/0.5 ML SYRINGE IM ONE (15:30)
[2019-12-06] MEDS: HYDROcodone/Acetaminophen 10/325 mg Tablet PO PRN ×2 (00:40→08:10)
[2019-12-06] MEDS: Citalopram 20 MG TAB PO SCH (08:10)
[2019-12-06] MEDS: Multivitamin W/ Minerals 1 TAB PO SCH (08:10)
[2019-12-06] MEDS: Cyanocobalamin (Vitamin B-12) 1,000 MCG TAB PO SCH (08:10)
[2019-12-06 08:11] VITALS: TEMP 97.6
[2019-12-06] MEDS: Amlodipine 5 MG TAB PO SCH (08:13)
[2019-12-06] MEDS: Hydrochlorothiazide 25 MG TAB PO SCH (08:13)
[2019-12-06] MEDS: Losartan 25 MG TAB PO SCH (08:14)
[2019-12-06 08:18] VITALS: BP 115/78
== END 2019-12-06 11:49 | disposition home or self-care (01) ==
LOC: SDC 07:29 → SURG B 14:35
PROVIDERS: ADMIT Orthopaedic Surgery; ATTEND Orthopaedic Surgery
PROC: 0PSD04Z Reposition Left Humeral Head with Internal Fixation Device, Open Approach (ICD-10-PCS; principal; 2019-12-04)
DX: S42.202A Unspecified fracture of upper end of left humerus, initial encounter for closed fracture (principal); M81.0 Age-related osteoporosis without current pathological fracture; F32.9 Major depressive disorder, single episode, unspecified; F17.210 Nicotine dependence, cigarettes, uncomplicated; Z79.83 Long term (current) use of bisphosphonates; Z79.899 Other long term (current) drug therapy; Z88.6 Allergy status to analgesic agent; W01.0XXA Fall on same level from slipping, tripping and stumbling without subsequent striking against object, initial encounter
CPT/HCPCS: 36415; 76000; 80048; 85025; 93005; 93010; 96365; 96366; A4306; C1713; G0378; J0690; J1100; J2250; J2405; J2704; J2795; J3010; J7611

== ENCOUNTER 2020-04-18 12:03 | Outpatient (CLI) | payer BC ==
--- NOTE | 2020-04-18 12:36 | MMO ---
Bilateral MAMMO Bilat Screen [facility]. CLINICAL HISTORY: Patient is 64 years old and is seen for screening. The patient has the following family history of breast cancer: cousin female. The patient has no personal history of cancer. VIEWS: The views performed were: bilateral mediolateral oblique with tomosynthesis; bilateral craniocaudal with tomosynthesis; bilateral mediolateral oblique; and left craniocaudal. FILMS COMPARED: The present examination has been compared to prior imaging studies performed at [facility] on 03/16/2016, 03/18/2017, 04/08/2018 and 04/09/2019. This study has been interpreted with the assistance of computer-aided detection. MAMMOGRAM FINDINGS: The breasts are heterogeneously dense, which could obscure a lesion on mammography. There are benign appearing calcifications seen in both breasts. There are no suspicious masses, suspicious calcifications, or new areas of architectural distortion. IMPRESSION: THERE IS NO MAMMOGRAPHIC EVIDENCE OF MALIGNANCY. A ROUTINE FOLLOW-UP MAMMOGRAM IN 1 YEAR IS RECOMMENDED. THE RESULTS OF THIS EXAM WERE SENT TO THE PATIENT. ACR BI-RADS Category 2 - Benign finding MAMMOGRAPHY NOTE: 1. A negative mammogram report should not delay a biopsy if a dominant of clinically suspicious mass is present. 2. Approximately 10% to 15% of breast cancers are not detected by mammography. 3. Adenosis and dense breasts may obscure an underlying neoplasm. Reported by: JANNIE WEINER MD Electonically Signed: [id number]
== END 2020-04-18 12:04 | disposition home or self-care (01) ==
LOC: BICMAMMO 12:03
PROVIDERS: ATTEND Physician Assistant
DX: Z12.31 Encounter for screening mammogram for malignant neoplasm of breast (principal); Z80.3 Family history of malignant neoplasm of breast
CPT/HCPCS: 77063; 77067

== ENCOUNTER 2021-04-20 13:16 | Outpatient (CLI) | payer BC | END 2021-04-20 13:17 | disposition home or self-care (01) | LOC: BICMAMMO 13:16 | PROVIDERS: ATTEND Physician Assistant | DX: Z12.31 Encounter for screening mammogram for malignant neoplasm of breast (principal); Z80.3 Family history of malignant neoplasm of breast | CPT/HCPCS: 77063; 77067 ==

== ENCOUNTER 2021-07-26 13:47 | Outpatient (CLI) | payer BC | END 2021-07-26 13:48 | disposition home or self-care (01) | LOC: BICMAMMO 13:47 | PROVIDERS: ATTEND Physician Assistant | DX: M81.0 Age-related osteoporosis without current pathological fracture (principal); M85.89 Other specified disorders of bone density and structure, multiple sites | CPT/HCPCS: 77080 ==

== ENCOUNTER 2022-04-23 13:01 | Outpatient (CLI) | payer BC | END 2022-04-23 13:02 | disposition home or self-care (01) | LOC: BICMAMMO 13:01 | PROVIDERS: ATTEND Physician Assistant | DX: Z12.31 Encounter for screening mammogram for malignant neoplasm of breast (principal); Z80.3 Family history of malignant neoplasm of breast | CPT/HCPCS: 77063; 77067 ==

== ENCOUNTER 2022-07-18 11:37 | Outpatient (CLI) | payer BC | END 2022-07-18 11:38 | disposition home or self-care (01) | LOC: BICRAD 11:37 | PROVIDERS: ATTEND Nurse Practitioner Family | DX: S69.91XA Unspecified injury of right wrist, hand and finger(s), initial encounter (principal); S52.511D Displaced fracture of right radial styloid process, subsequent encounter for closed fracture with routine healing ==

== ENCOUNTER 2022-09-17 12:31 | Outpatient (CLI) | payer BC | END 2022-09-17 12:32 | disposition home or self-care (01) | LOC: TBSIIMAG 12:31 | PROVIDERS: ATTEND Specialist | DX: M48.061 Spinal stenosis, lumbar region without neurogenic claudication (principal); E88.2 Lipomatosis, not elsewhere classified | CPT/HCPCS: 72148 ==

== ENCOUNTER 2022-11-19 11:33 | Outpatient (CLI) | payer BC | END 2022-11-19 11:34 | disposition home or self-care (01) | LOC: CT 11:33 | PROVIDERS: ATTEND Neurological Surgery | DX: R10.9 Unspecified abdominal pain (principal); K57.32 Diverticulitis of large intestine without perforation or abscess without bleeding | CPT/HCPCS: 74176 ==

== ENCOUNTER 2023-01-14 12:37 | Outpatient (CLI) | payer MEDICARE, BC | END 2023-01-14 12:38 | disposition home or self-care (01) | LOC: TBSIIMAG 12:37 | PROVIDERS: ATTEND Neurological Surgery | DX: R29.2 Abnormal reflex (principal); M50.322 Other cervical disc degeneration at C5-C6 level; M25.78 Osteophyte, vertebrae | CPT/HCPCS: 72141 ==

== ENCOUNTER 2023-02-12 13:09 | Outpatient (CLI) | payer MEDICARE, BC ==
[~2023-02-12 13:09] MED LIST changes: -Glycopyrrolate 0.2 MG/ML 5 ML SYRINGE ONE; -Lidocaine 1% PF 5 ML VIAL ONE; +Magnevist 469MG/ML 20 ML VIAL ONE; -PROPOFOL 200 MG/20 ML VIAL ONE; -Succinylcholine Chloride 20 MG/ML 10 ml SYRINGE FS ONE
== END 2023-02-12 13:10 | disposition home or self-care (01) ==
LOC: TBSIIMAG 13:09
PROVIDERS: ATTEND Psychiatry & Neurology Neurology
DX: G95.9 Disease of spinal cord, unspecified (principal); I67.82 Cerebral ischemia
CPT/HCPCS: 70553; 72156; 72157; 82565; A9579

== ENCOUNTER 2023-03-06 08:00 | Emergency (ER) | payer OTHER, MEDICARE, BC ==
[2023-03-06] MEDS ORDERED: Acetaminophen 500 MG TAB ONE (08:34)
[2023-03-06] MEDS ORDERED: Boostrix 0.5 ML (Tdap) VIAL (>/=7 yrs of age) ONE (08:34)
[2023-03-06] MEDS ORDERED: Morphine 4 MG/ML VIAL ONE (09:40)
== END 2023-03-06 09:50 | disposition home or self-care (01) ==
LOC: ERS 08:00
DX: S52.022A Displaced fracture of olecranon process without intraarticular extension of left ulna, initial encounter for closed fracture (principal); K21.9 Gastro-esophageal reflux disease without esophagitis; I10 Essential (primary) hypertension; F17.210 Nicotine dependence, cigarettes, uncomplicated; W01.0XXA Fall on same level from slipping, tripping and stumbling without subsequent striking against object, initial encounter; Z79.899 Other long term (current) drug therapy; Z23 Encounter for immunization
CPT/HCPCS: 29105; 90471; 90715; 94760; 96372; J2270

== ENCOUNTER 2023-03-18 11:21 | Outpatient (CLI) | payer MEDICARE, BC | END 2023-03-18 11:22 | disposition home or self-care (01) | LOC: LABBT 11:21 | PROVIDERS: ATTEND Orthopaedic Surgery | DX: Z01.810 Encounter for preprocedural cardiovascular examination (principal); S52.022A Displaced fracture of olecranon process without intraarticular extension of left ulna, initial encounter for closed fracture | CPT/HCPCS: 93005; 93010 ==

== ENCOUNTER 2023-03-19 10:15 | Day surgery (SDC) | payer OTHER, MEDICARE, BC ==
[2023-03-18 16:14] VITALS: BMI 46.0
[2023-03-19] MEDS ORDERED: fentaNYL PF 100 MCG/2 ML SYRINGE ONE (12:08)
[2023-03-19] MEDS ORDERED: Midazolam HCl 2 mg/2 ml Vial ONE (12:13)
[2023-03-19] MEDS ORDERED: Acetaminophen 500 MG TAB ONE (12:14)
[2023-03-19] MEDS ORDERED: Sodium Chloride 0.9% 100 ML ONE (12:28)
[2023-03-19] MEDS ORDERED: CEFAZOLIN 2 GM VIAL ONE (12:28)
[2023-03-19] MEDS ORDERED: Dexamethasone 20 MG/5 ML VIAL ONE (12:39)
[2023-03-19] MEDS ORDERED: Phenylephrine 10 MG/ML VIAL ONE (12:39)
[2023-03-19] MEDS ORDERED: Bupivacaine 0.25% HCL 30 ML VIAL ONE (12:39)
[2023-03-19] MEDS ORDERED: Rocuronium Bromide 10 MG/ML (10ML VIAL) ONE (12:39)
[2023-03-19] MEDS ORDERED: Ondansetron PF 4 MG/2 ML Vial ONE (12:39)
[2023-03-19] MEDS ORDERED: Lidocaine 1% PF 5 ML VIAL ONE (12:39)
[2023-03-19] MEDS ORDERED: PROPOFOL 200 MG/20 ML VIAL ONE (12:39)
[2023-03-19] MEDS ORDERED: Albuterol HFA (OR) 200 PUFF INH ONE (12:39)
[2023-03-19] MEDS ORDERED: SUGAMMADEX SODIUM 200 MG/2 ML VIAL ONE (13:54)
[2023-03-19] MEDS ORDERED: fentaNYL 50 mcg/mL 1 mL Vial ONE ×4 (14:43→15:40)
== END 2023-03-19 16:43 | disposition home or self-care (01) ==
LOC: SDC 10:15
PROVIDERS: ATTEND Orthopaedic Surgery
PROC: 0PSL04Z Reposition Left Ulna with Internal Fixation Device, Open Approach (ICD-10-PCS; principal; 2023-03-19)
DX: S52.032A Displaced fracture of olecranon process with intraarticular extension of left ulna, initial encounter for closed fracture (principal); M81.0 Age-related osteoporosis without current pathological fracture; I10 Essential (primary) hypertension; F10.20 Alcohol dependence, uncomplicated; F17.210 Nicotine dependence, cigarettes, uncomplicated; E66.9 Obesity, unspecified; Z68.42 Body mass index [BMI] 45.0-49.9, adult; Z79.83 Long term (current) use of bisphosphonates; Z79.899 Other long term (current) drug therapy; Z88.6 Allergy status to analgesic agent; Z91.018 Allergy to other foods; W19.XXXA Unspecified fall, initial encounter; Y92.232 Corridor of hospital as the place of occurrence of the external cause
CPT/HCPCS: 24685; 73070; J3010; C1713; J1100; J2250; J2370; J2405; J2704; J3490; S0020

== ENCOUNTER 2023-03-27 15:20 | Outpatient (CLI) | payer MEDICARE, BC | END 2023-03-27 15:21 | disposition home or self-care (01) | LOC: BICRAD 15:20 | PROVIDERS: ATTEND Neurological Surgery | DX: M47.26 Other spondylosis with radiculopathy, lumbar region (principal) | CPT/HCPCS: 72120 ==

== ENCOUNTER 2023-04-01 07:28 | Day surgery (SDC) | payer MEDICARE, BC ==
[2023-03-05 12:44] VITALS: BMI 46.4
[2023-03-06 07:50] LABS: #Basophils 0.1 thou/uL (0.0-0.2); #Eosinphils 0.1 thou/uL (0.0-0.7); #Lymphocytes 2.8 thou/uL (1.20-3.40); #Monocytes 0.9 thou/uL (0.11-0.59); #Neutrophils 4.6 thou/uL (1.40-6.50); %Basophils 1.2 % (0.0-1.0); %Eosinophils 1.3 % (0.0-10.0); %Lymphocytes 33.5 % (21.0-51.0); %Monocytes 10.3 % (0.0-10.0); %Neutrophils 53.7 % (42.0-75.0); Mean Corpuscular HGB CONC 32.8 g/dL (32.0-36.0); Mean Corpuscular Hemoglobin 33.7 pg (27.0-31.0); Platelet Count 226 10x3/uL (130-400); RBC Distribution Width 11.3 % (11.5-14.5); Red Blood Cell (RBC) Count 4.74 mill/uL (4.20-5.40); White Blood Cell (WBC) Count 8.5 10x3/uL (4.8-10.8)
[2023-03-06 08:18] LABS: ALT (SGPT) 38 U/L (8-55); AST (SGOT) 25 U/L (5-34); Albumin 4.2 g/dL (3.4-4.8); Alkaline Phosphatase 95 U/L (40-110); Anion Gap 14 mmol/L (10-20); BUN (Urea Nitrogen) 9 mg/dL (9.8-20.1); Bilirubin, Total 0.7 mg/dL (0.2-1.2); CRP (Inflammatory) Less than 0.50 mg/dL (= or < 0.5); Calc. Creatinine Clearance 162 mL/min (70-130); Calcium 8.7 mg/dL (7.8-10.44); Carbon Dioxide 20 mmol/L (23-31); Chloride 100 mmol/L (98-107); Estimated GFR 98; Globulin 3.1 g/dL (2.4-3.5); Glucose 93 mg/dL (80-115); Potassium 4.3 mmol/L (3.5-5.1); Protein, Total 7.3 g/dL (5.8-8.1); Sodium 130 mmol/L (136-145)
[2023-03-06 08:34] LABS: HIV (1/2) Antibody/Antigen Non-Reactive (NonReactive); HIV 1/2 INDEX 0.13 S/CO (<1.00)
[2023-03-06 12:12] LABS: ANA Symphony (Qualitative) Negative (Negative); ANA Symphony (Quantitative) 0.3 Ratio (< 0.7 Negative); EliA RAS New Method **** NEW METHOD ****; Rheumatoid Factor IgA Antibody 9.9 IU/mL (<14 Negative); Rheumatoid Factor IgM Antibody 1.1 IU/mL (<3.5 Negative); dsDNA IgG Antibody 0.7 IU/mL (<10 Negative)
[2023-03-06 15:24] LABS: Reference Lab Name LABCORP
[2023-03-08 15:14] LABS: IFE-Serum Interpretation Note: (.); IgA - Total IgA (Sendout) 444 mg/dL (87-352); Immunoglobulin - G (Sendout) 1209 mg/dL (586-1602); Immunoglobulin - M (Sendout) 64 mg/dL (26-217)
[2023-03-10 01:36] LABS: Methylmalonic Acid 91 nmol/L (0-378)
[2023-04-01 08:17] VITALS: BP 121/82; TEMP 98.4
[2023-04-01 10:56] LABS: CSF RBC Count - Manual 0 /cu.mm (None Seen); CSF Source CSF; CSF WBC/NonHematics Count-Man 0 /cu.mm (0-5); Clarity Clear (Clear); Tube # 3
[2023-04-01 11:08] LABS: CSF, Glucose 56 mg/dl (40-70); CSF, Protein 35 mg/dL (15-40)
[2023-04-01 12:29] LABS: Color Of CSF Supernatant COLORLESS (Colorless); Tube # 1; Unspun CSF Color COLORLESS (Colorless)
[2023-04-04 14:40] LABS: CSF IgG Index 0.6 (0.0-0.7); CSF IgG Synthesis Rate -1.1 mg/day (-9.9 TO +3.3); IgG/Alb CSF 0.17 (0.00-0.25)
== END 2023-04-01 10:30 | disposition home or self-care (01) ==
LOC: RAD 07:28
PROVIDERS: ATTEND Psychiatry & Neurology Neurology
DX: G95.9 Disease of spinal cord, unspecified (principal); Z53.9 Procedure and treatment not carried out, unspecified reason; Z79.83 Long term (current) use of bisphosphonates; Z79.899 Other long term (current) drug therapy; Z88.6 Allergy status to analgesic agent; Z91.018 Allergy to other foods; Z11.3 Encounter for screening for infections with a predominantly sexual mode of transmission
CPT/HCPCS: 62270; 80053; 82040; 82042; 82525; 82746; 82784; 82945; 83090; 83520; 83873; 83916; 83921; 84157; 84425; 85025; 85652; 86038; 86140; 86160; 86225; 86334; 86592; 87389; 89051

== ENCOUNTER 2023-11-07 13:32 | Outpatient (CLI) | payer MEDICARE, BC | END 2023-11-07 13:33 | disposition home or self-care (01) | LOC: BICMAMMO 13:32 | PROVIDERS: ATTEND Physician Assistant | DX: M81.0 Age-related osteoporosis without current pathological fracture (principal); M85.89 Other specified disorders of bone density and structure, multiple sites | CPT/HCPCS: 77080 ==

== ENCOUNTER 2024-05-25 11:02 | Outpatient (CLI) | payer MEDICARE | END 2024-05-25 11:03 | disposition home or self-care (01) | LOC: BICMAMMO 11:02 | PROVIDERS: ATTEND Family Medicine | DX: Z12.31 Encounter for screening mammogram for malignant neoplasm of breast (principal); Z80.3 Family history of malignant neoplasm of breast | CPT/HCPCS: 77063; 77067 ==

== ENCOUNTER 2024-09-16 13:13 | Outpatient (CLI) | payer MEDICARE | END 2024-09-16 13:14 | disposition home or self-care (01) | LOC: BICULT 13:13 | PROVIDERS: ATTEND Internal Medicine | DX: N93.9 Abnormal uterine and vaginal bleeding, unspecified (principal); D25.9 Leiomyoma of uterus, unspecified; N85.2 Hypertrophy of uterus | CPT/HCPCS: 76856 ==

== ENCOUNTER 2025-11-23 10:54 | Outpatient (CLI) | payer MEDICARE | END 2025-11-23 10:55 | disposition home or self-care (01) | LOC: BICMAMMO 10:54 | PROVIDERS: ATTEND Family Medicine | DX: Z78.0 Asymptomatic menopausal state (principal); M85.851 Other specified disorders of bone density and structure, right thigh; M85.852 Other specified disorders of bone density and structure, left thigh | CPT/HCPCS: 77080 ==